=== PATIENT | male | born 1970 | race Caucasian/White ===

== ENCOUNTER 2022-10-23 15:19 | Emergency (ER) | payer MEDICARE, MEDICAID, SELFPAY ==
--- NOTE | ~2022-10-23 | XR_ITS ---
EXAMINATION: XR CHEST CLINICAL INFORMATION: High blood pressure COMPARISON: 08/09/2015 TECHNIQUE: 2 views of the chest were obtained. FINDINGS: Cardiac leads overlie the chest. The lungs are well expanded. There is no focal consolidation, edema, or effusion. No pneumothorax. The cardiomediastinal silhouette is within normal limits. No acute osseous abnormality. XR/XR chest 2V IMPRESSION: Clear lungs.
--- NOTE | 2022-10-23 15:26 | ECG_ITS ---
Test Reason : CHEST PAIN Blood Pressure : / mmHG Vent. Rate : 080 BPM Atrial Rate : 080 BPM P-R Int : 148 ms QRS Dur : 078 ms QT Int : 370 ms P-R-T Axes : 038 -31 116 degrees QTc Int : 426 ms Normal sinus rhythm Left axis deviation T wave abnormality, consider lateral ischemia Abnormal ECG When compared with ECG of 09-AUG-2015 09:47, ST now depressed in Lateral leads Nonspecific T wave abnormality no longer evident in Inferior leads T wave inversion now evident in Lateral leads Referred By: Margaux Venegas Electronically Signed By:CALE MCDUFFIE
[2022-10-23 15:35] VITALS: BP 194/117; PULSE 87; RESP 20; O2SAT 96; BMI 38.7
--- NOTE | 2022-10-23 15:55 | ED.GENADULT ---
HPI - General Adult General Chief complaint: General Medical Stated complaint: High blood pressure sent from office Time Seen by Provider: 10/23/22 15:36 Source: patient Mode of arrival: ambulatory Limitations: no limitations History of Present Illness HPI narrative: 52-year-old male past medical history of hypertension presents to the emergency department today from his primary care office with complaints of hypertension, slight headache, and flu like symptoms since Friday. He states he has recently been taking DayQuil, NyQuil, and cough medicine, each containing dextromethorphan and phenylephrine. He has also not been compliant with his p.o. antihypertensives because he did not want to mix to many medications. He reports upper respiratory symptoms began on Friday a cough and a general feeling of being unwell. Pt denies any recent illness, sick contacts, paresthesias, weakness, fever, chills, nausea, vomiting, diarrhea, constipation, headache, or vision changes. Onset (ago): day(s) Related Data Allergies Allergy/AdvReac Type Severity Reaction Status Date / Time influenza virus vaccine, Allergy Unknown UNKNOWN Unverified 06/15/20 18:57 specific [FLU VACCINE] none Allergy Unknown Uncoded 06/11/19 00:00 Review of Systems Review of Systems: In addition to documented HPI above, the additional ROS was obtained: Constitutional: No Weight loss, No Fever, No Chills ENT/Mouth: No Ear Pain, No Nasal Congestion, No Sinus Pain, No Hoarseness, No sore throat, No Rhinorrhea, No Swallowing Difficulty Cardiovascular: No Chest Pain, No SOB Respiratory: No Cough, No Sputum, No Wheezing Gastrointestinal: No Nausea, No Vomiting, No Diarrhea, No Constipation, No Abdominal pain Genitourinary: No Dysuria, No Urinary Frequency, No Hematuria, No Urinary Incontinence/retention, No Urgency, No Flank Pain Musculoskeletal: No joint pain, No Myalgias, No Joint Swelling Skin: No Skin Lesions, No rash Neuro: No Weakness, No Numbness, No Paresthesias Yes all other systems are reviewed and are negative [facility] Social History Social History Advance Directives: No Advance Directives Information Provided: No Physical Exam ED Vital Signs: Vital Signs - 24 hr 10/23/22 15:35 10/23/22 16:55 Pulse Rate 87 Respiratory Rate 20 Blood Pressure 194/117 H 147/99 H Pulse Oximetry 96 Oxygen Delivery Method Room Air BMI result Body Mass Index 38.7 Medical Decision Making Medical Decision Making MDM Narrative: 52-year-old male past medical history of hypertension presents to the emergency department today from his primary care office with complaints of hypertension, slight headache, and flu like symptoms since Friday. Blood work unremarkable. Serology negative for influenza, RSV, and COVID-19. Chest x-ray negative. LS CTA, MAURO x4 with equal strength, A&O x4. Patient is safe for discharge at this time with plan to in his symptoms with [id number] Tylenol and/or NSAIDs. Patient educated to avoid medications that contain phenylephrine or dextromethorphan. HPI, PE, diagnostics, and plan discussed with patient and family with no unanswered questions at this time. Patient educated to return to the emergency department with new, worsening, or concerning emergent symptoms. Recommended to follow-up with there primary care provider for further treatment and management. *Refer to Course for additional information on consultations, diagnostic interpretation, consultations, emergency department stay, conversations with patient and family, shared decision making with patient, and more information on medical decision making* Lab Data 10/23/22 15:54 10/23/22 15:54 Labs: Lab Results 10/23/22 10/23/22 10/23/22 Range/Units 15:54 15:54 15:54 WBC 13.8 H (4.8-10.8) X10*3/uL RBC 5.07 (4.60-5.80) X10*6/uL Hgb 16.0 (14.0-18.0) g/dl Hct 45.9 (42.0-52.0) % MCV 90.5 (80.0-98.0) fL MCH 31.6 (27.0-33.0) pg MCHC 34.9 (31.0-36.0) g/dl RDW 13.1 (11.0-16.0) % Plt Count 215 (160-400) X10*3/uL MPV 11.2 (9.4-12.4) fL Immature Gran % (Auto) 0.4 (0.0-0.4) % Neut % (Auto) 66.3 (45-73) % Lymph % (Auto) 18.0 L (20-40) % [place] % (Auto) 12.6 H (2-11) % Eos % (Auto) 2.3 (0-4) % Baso % (Auto) 0.4 (0-2) % Lymph # (Auto) 2.5 (1.2-4.9) X10*3/uL [place] # (Auto) 1.7 H (0.1-1.2) X10*3/uL Eos # (Auto) 0.3 (0.0-0.4) X10*3/uL Baso # (Auto) 0.1 (0.0-0.2) X10*3/uL Abs Immat Gran (auto) 0.05 H (0.00-0.03) X10*3/uL Absolute Neuts (auto) 9.1 H (2.0-8.3) x10*3/uL Absolute Nucleated RBC 0.000 (0.0-0.012) X10*3/uL Nucleated RBC % (auto) 0.0 (0.0-0.2) /100WBC Smear Tech's Comments VERIFIED PT 13.2 H (10.0-13.1) SEC INR 1.1 (0.9-1.1) Sodium 142 (135-145) mmol/L Potassium 4.0 (3.3-5.1) mmol/L Chloride 105 (96-108) mmol/L Carbon Dioxide 28 (22-29) mmol/L Anion Gap 13 (12-20) BUN 14 (9-16) mg/dL Creatinine 1.34 (0.5-1.4) mg/dL Estim Creat Clear Calc 72.9 Estimated GFR 56 Random Glucose 67 (60-115) mg/dL Calcium 8.9 (8.4-10.2) mg/dL Magnesium 2.3 (1.6-2.6) mg/dL Total Bilirubin 0.7 (0.0-1.0) mg/dL AST 13 (5-37) U/L ALT 15 (0-40) U/L Alkaline Phosphatase 92 (39-117) U/L Troponin I High Sens (<3.5-35.0) ng/L Total Protein 7.1 (6.5-8.0) g/dL Albumin 4.1 (3.5-5.0) g/dL Influenza Type A (PCR) (Negative) Influenza Type B (PCR) (Negative) RSV RNA Qual (PCR) (Negative) SARS-CoV-2 RNA (RT-PCR) (Negative) 10/23/22 10/23/22 Range/Units 15:54 15:54 WBC (4.8-10.8) X10*3/uL RBC (4.60-5.80) X10*6/uL Hgb (14.0-18.0) g/dl Hct (42.0-52.0) % MCV (80.0-98.0) fL MCH (27.0-33.0) pg MCHC (31.0-36.0) g/dl RDW (11.0-16.0) % Plt Count (160-400) X10*3/uL MPV (9.4-12.4) fL Immature Gran % (Auto) (0.0-0.4) % Neut % (Auto) (45-73) % Lymph % (Auto) (20-40) % [place] % (Auto) (2-11) % Eos % (Auto) (0-4) % Baso % (Auto) (0-2) % Lymph # (Auto) (1.2-4.9) X10*3/uL [place] # (Auto) (0.1-1.2) X10*3/uL Eos # (Auto) (0.0-0.4) X10*3/uL Baso # (Auto) (0.0-0.2) X10*3/uL Abs Immat Gran (auto) (0.00-0.03) X10*3/uL Absolute Neuts (auto) (2.0-8.3) x10*3/uL Absolute Nucleated RBC (0.0-0.012) X10*3/uL Nucleated RBC % (auto) (0.0-0.2) /100WBC Smear Tech's Comments PT (10.0-13.1) SEC INR (0.9-1.1) Sodium (135-145) mmol/L Potassium (3.3-5.1) mmol/L Chloride (96-108) mmol/L Carbon Dioxide (22-29) mmol/L Anion Gap (12-20) BUN (9-16) mg/dL Creatinine (0.5-1.4) mg/dL Estim Creat Clear Calc Estimated GFR Random Glucose (60-115) mg/dL Calcium (8.4-10.2) mg/dL Magnesium (1.6-2.6) mg/dL Total Bilirubin (0.0-1.0) mg/dL AST (5-37) U/L ALT (0-40) U/L Alkaline Phosphatase (39-117) U/L Troponin I High Sens 30.9 (<3.5-35.0) ng/L Total Protein (6.5-8.0) g/dL Albumin (3.5-5.0) g/dL Influenza Type A (PCR) NEGATIVE (Negative) Influenza Type B (PCR) NEGATIVE (Negative) RSV RNA Qual (PCR) NEGATIVE (Negative) SARS-CoV-2 RNA (RT-PCR) NEGATIVE (Negative) Discharge Plan Discharge Clinical Impression: Hypertension Patient Disposition: Home, Self-Care Instructions: Heart Healthy Diet (ED), Hypertension (ED) Additional Instructions: Please take your prescribed antihypertensive when you get home. DO NOT take medications that contain phenylephrine or dextromethorphan as they will increase your blood pressure. Your chest x-ray shows no evidence of pneumonia. Your blood work is unremarkable. Your are negative for influenza, RSV, COVID-19. Please return to the emergency department new, worsening, or concerning emergent symptoms. Please follow-up the primary care provider for further treatment and management. Referrals: [facility] [Primary Care Provider] - Stand Alone Forms: Work/School Release Print Language: Djib[place]ian
[2022-10-23 16:12] LABS: INTERNATIONAL NORM RATIO 1.1 (0.9-1.1); Prothrombin Time 13.2 SEC (10.0-13.1)
[2022-10-23 16:13] LABS: Basophils Absolute Auto 0.1 X10*3/uL (0.0-0.2); Basophils Percent Auto 0.4 % (0-2); Eosinophils Absolute Auto 0.3 X10*3/uL (0.0-0.4); Eosinophils Percent Auto 2.3 % (0-4); Hematocrit 45.9 % (42.0-52.0); Imm Gran Abs Auto 0.05 X10*3/uL (0.00-0.03); Imm Gran Pct Auto 0.4 % (0.0-0.4); Lymphocytes Absolute Auto 2.5 X10*3/uL (1.2-4.9); MANUAL DIFF FLAG SCAN; Mean Corpuscular HGB Conc 34.9 g/dl (31.0-36.0); Mean Corpuscular Hemoglobin 31.6 pg (27.0-33.0); Mean Corpuscular Volume 90.5 fL (80.0-98.0); Mean Platelet Volume 11.2 fL (9.4-12.4); Monocytes Absolute Auto 1.7 X10*3/uL (0.1-1.2); Monocytes Percent Auto 12.6 % (2-11); Neutrophils Absolute Auto 9.1 x10*3/uL (2.0-8.3); Neutrophils Percent Auto 66.3 % (45-73); Platelet Count 215 X10*3/uL (160-400); Red Blood Count 5.07 X10*6/uL (4.60-5.80); Red Cell Distribution Width 13.1 % (11.0-16.0); SCAN SMEAR FLAG 1; White Blood Count 13.8 X10*3/uL (4.8-10.8)
[2022-10-23 16:20] LABS: Alanine Aminotransferase 15 U/L (0-40); Albumin Level 4.1 g/dL (3.5-5.0); Alkaline Phosphatase 92 U/L (39-117); Anion Gap 13 (12-20); Aspartate Amino Transferase 13 U/L (5-37); Bilirubin Total 0.7 mg/dL (0.0-1.0); Blood Urea Nitrogen 14 mg/dL (9-16); Calcium 8.9 mg/dL (8.4-10.2); Carbon Dioxide 28 mmol/L (22-29); Chloride 105 mmol/L (96-108); Creatinine Clr Calc Pharmacy 72.9; Estimated Glomerular Filt Rate 56; Glucose Random 67 mg/dL (60-115); Magnesium 2.3 mg/dL (1.6-2.6); Sodium 142 mmol/L (135-145); Total Protein 7.1 g/dL (6.5-8.0)
[2022-10-23 16:27] LABS: Troponin-I High Sensitivity 30.9 ng/L (<3.5-35.0)
[2022-10-23 16:35] LABS: SLIDE REVIEW VERIFIED
[2022-10-23 16:48] LABS: Influenza A PCR NEGATIVE (Negative); Influenza B PCR NEGATIVE (Negative); Resp Syncy Virus RNA Qual PCR NEGATIVE (Negative); SARS COV2 PCR INHOUSE NEGATIVE (Negative)
[2022-10-23 16:55] VITALS: BP 147/99
== END 2022-10-23 17:38 | disposition home or self-care (01) ==
PROVIDERS: Physician Assistant Medical; Emergency Provider Emergency Medicine
DX: I10 Essential (primary) hypertension (principal); R51.9 Headache, unspecified; Z20.822 Contact with and (suspected) exposure to COVID-19; Z20.828 Contact with and (suspected) exposure to other viral communicable diseases; Z79.899 Other long term (current) drug therapy
CPT/HCPCS: 0241U; 36415; 71046; 80053; 83735; 84484; 85025; 85610; 93005; 99283; 99284

== ENCOUNTER 2023-10-13 14:08 | Outpatient (AMB) | payer MEDICARE, MEDICAID, SELFPAY ==
--- NOTE | 2023-10-13 14:18 | A.OFFVIS_ITS ---
Intake Vital Signs 10/13/23 14:19 Height 5 ft 6 in Weight 208 lb 15.971 oz BMI 33.7 BP 124/78 Blood Pressure Location Lt brachial Position Sitting Pulse 87 Intake Visit Reasons: [employer]/ Thelma [place]/ primary htn Intake Note: NPV Multi Care Technician Required: No Accompanied by: Self / Same As Patient Allergies influenza virus vaccine, specific [FLU VACCINE] Allergy (Unknown, Verified 10/13/23 14:22) UNKNOWN Medication List - Last Reconciled 10/13/23 by Taiwo Will MD amlodipine-benazepril 10-40 mg 1 cap PO DAILY HPI HPI Comments History of Present Illness Details Pablito is here for consultation regarding hypertension. It seems that he has had a long history of hypertension. Currently better on a combination of amlodipine/benazepril. He states that he is generally compliant but sometimes forgets take medicines. Per PCP note, blood pressure runs on the higher side. Today, however, it is completely normal at 124/78 mm Hg. He does not have any history of coronary disease, myocardial infarction or cardiomyopathy or in fact any other cardiac issues. No anginal-type chest pains and he states he can walk up and down stairs without difficulty. [facility] Medical History (Updated 10/13/23 @ 14:33 by Taiwo Will MD) Essential hypertension Surgical History (Updated 10/13/23 @ 14:22 by Arabella Ortiz) No pertinent past surgical history Family History (Updated 10/13/23 @ 14:22 by Arabella Ortiz) Mother No problems noted. Father No problems noted. Social History (Updated 10/13/23 @ 14:23 by Arabella Ortiz) Alcohol intake: never Patient Tobacco Use Status: Never used Tobacco Review of Systems Const Denies chills, Denies daytime sleepiness, Denies fatigue, Denies fever(s), Denies frequent falls, Denies night sweats, Denies snoring, Denies weakness, Denies weight gain and Denies weight loss Eyes Denies loss of vision ENT Denies dizziness and Denies hearing loss Card Denies chest pain with activity, Denies syncope, Denies rapid heart rate, Denies edema, Denies claudication, Denies leg edema, Denies lightheadedness, Denies palpitations, Denies dyspnea, Denies dyspnea on exertion and Denies orthopnea Resp Denies cough, Denies excessive phlegm production, Denies dyspnea, Denies dyspnea on exertion, Denies snoring and Denies wheezing GI Denies abdominal pain, Denies hematochezia, Denies change in bowel habits, Denies change in stool character, Denies heartburn, Denies nausea and Denies vomiting Denies hematuria, Denies dysuria and Denies urinary frequency Musc Denies arthralgias, Denies muscle weakness, Denies numbness and Denies tingling Skin/Breast Denies nail changes and Denies rash Neuro Denies Abnormal speech present, Denies dizziness, Denies syncope, Denies frequent falls, Denies loss of vision, Denies memory loss, Denies numbness, Denies tingling and Denies weakness Psych Denies depression and Denies memory loss Endo Denies fatigue and Denies palpitations Aller/Immun Denies wheezing Physical Exam Vital Signs: Last Vital Signs Pulse 87 10/13/23 14:19 BP 124/78 10/13/23 14:19 BMI result Body Mass Index 33.7 Const General: comfortable and no acute distress Orientation/consciousness: patient oriented x3 HEENT Other: Unremarkable Head: Yes normal to inspection Neck Neck: Yes normal visual inspection Chest Chest palpation & inspection: normal inspection of the chest Resp Auscultation: clear to auscultation bilaterally Cardio Palpation: normal PMI Heart sounds: S1 normal heart sound present, S2 normal heart sound present, no gallops, no murmurs and no rubs GI Palpation (GI): Soft to palpation Back/Spine/Pelvis Other: unremarkable Skin General skin exam: no rashes or lesions noted Neuro General: patient oriented x3 Speech: No Abnormal speech present Extrem General: Yes normal to inspection Psych Mental Status: mental status grossly normal Assessment & Plan Assessment & Plan (1) Essential hypertension: Code(s): I10 - Essential (primary) hypertension Plan Recent EKG shows sinus rhythm at 70/Min; nonspecific ST-T changes lateral leads; normal [place] and corrected QT. Can get echocardiogram for degree of left ventricular hypertrophy/diastolic dysf unction and for anything structural. In future, possibly consider adding a diuretic to optimize blood pressure management. Encouraged compliance with meds. Lifestyle modifications/low-salt diet/adequate physical activity. Orders: Orders CA echo transthoracic complete Today I10 - Essential (primary) hypertension Coding Level of Care Code New Pt Level 3 (29483) Diagnoses Essential hypertension I10
[2023-10-13 14:19] VITALS: BP 124/78; PULSE 87; BMI 33.7
== END 2023-10-13 14:37 | disposition home or self-care (01) ==
PROVIDERS: PCP Registered Nurse; Visit Provider Internal Medicine
DX: I10 Essential (primary) hypertension (principal)
CPT/HCPCS: 99213

== ENCOUNTER → 2023-10-13 14:08 | Outpatient (BNVA) | payer MEDICARE, MEDICAID, SELFPAY | PROVIDERS: PCP Registered Nurse; Visit Provider Internal Medicine | DX: I10 Essential (primary) hypertension (principal) | CPT/HCPCS: 99212 ==

== ENCOUNTER → 2023-10-28 13:00 | Outpatient (REF) | payer MEDICARE, MEDICAID, SELFPAY ==
--- NOTE | 2023-10-28 13:02 | CA_ITS ---
Transthoracic Echocardiogram Patient (Last, First, Middle): Pablito Agee, Gender: Male Date of : 1970 Age: 53 Procedure Date: 10/28/2023 Procedure Type: Transthoracic Echocardiogram Location: OP Height: 167.64 cm Weight: 86.18 kg BSA: 1.96 m2 Heart Rate: bpm BP: 110 / 60 mmHg Trim And Burr Operator: Referring MD: Taiwo Will MD Machine Tracer: Isidoro Lemons MD Symptoms: I10 - Essential (primary) hypertension Study Quality: Adequate ECG Rhythm: Sinus Conclusions: - 1. Normal LV ejection fraction of 55-60% with mild LVH with impaired relaxation filling pattern 2. Normal cardiac valvular Doppler 3. Normal RV systolic pressure 4. No pericardial effusion Findings Left Ventricle Normal left ventricular size and systolic function. There is mildly increased left ventricular wall thickness. The visually estimated ejection fraction is between 55-60%. Spectral Doppler is indicative of an impaired relaxation filling pattern. E/E prime ratio is between 8 and 15 consistent with indeterminate filling pressures. Peak GLS is -16.4%, which is mildly reduced. Right Ventricle Normal right ventricular cavity size and systolic function. Atria The left atrium is likely dilated. Interatrial shunt cannot be excluded. The right atrium is normal in size. Aortic Valve Normal aortic valve structure and function. There is no aortic valve stenosis. There is no aortic valve regurgitation. Mitral Valve Normal mitral valve structure and function. There is trace mitral valve regurgitation. There is no mitral valve stenosis. Pulmonic Valve The pulmonic valve is likely normal. Tricuspid Valve Normal tricuspid valve structure. There is trace tricuspid valve regurgitation. The right ventricular systolic pressure is normal. The right ventricular systolic pressure is 23 mmHg. Normal right atrial pressure. There is no evidence of pulmonary hypertension. Great Vessels All visible segments of the aorta are normal in size. The pulmonary artery was not well visualized. Venous The inferior vena cava is normal in size and collapses greater than 50% with inspiration. Pericardium/Pleural There is no evidence of pericardial effusion. Prior Study Comparison No prior study available for comparison. delay in reporting due to technical issues Measurements 2D Linear Measurements IVSd: 1.36 0.6-0.9/0.6-1.0 cm LVIDd: 5.22 3.9-5.3/4.2-5.9 cm LVIDd Index: 2.66 2.4-3.2/2.2-3.1 cm/m2 LVIDs: 2.98 2.0-3.6 cm LVPWd: 1.33 0.7-1.1 cm Ao Root: 3.40 2.1-3.5 cm LA Diam: 4.20 2.7-3.8/3.0-4.0 cm LAIDs Index: 2.14 1.5-2.3 cm/m2 LV Mass: 366.78 67-162/88-224 g LV Mass Index: 187.13 43-95/49-115 g/m2 LVOT Diam: 2.10 3.0+(-)1.3 cm 2D Systolic Function EF 4C: 50.70 >55% EF 2C: 63.40 >55% EF BiP: 57.80 >55% Mitral Valve MV Pk E: 0.65 MV PK A: 0.80 MV Decel Time: 123.00 E/A: 0.80 E'Lateral: 5.77 E'Medial: 5.22 E/E' Med: 12.40 E/E' Lat: 11.20 PHT: 36.00 MVA PHT: 6.11 Decel Howard: 5.25 Aortic Valve AoV Pk Valentin: 1.35 AoV Mn Valentin: 0.89 AoV VTI: 0.31 AoV Pk Grad: 7.00 Aov Mn Grad: 4.00 WILLIAM Cont.VTI: 2.30 LVOT LVOT Pk Valentin: 0.92 LVOT Mn Valentin: 0.63 LVOT VTI: 0.20 LVOT Pk Grad: 3.00 LVOT Mn Grad: 2.00 LVOT Diam: 2.10 LVOT Area: 3.46 Diastolic Function MV Pk E: 0.65 MV Pk A: 0.80 E/A: 0.80 E'Medial: 5.22 E/E' Med: 12.40 E' Laterial: 5.77 E/E' Lat: 11.20 Right Ventricle TAPSE (mm): 24.00 Tricuspid Valve TR Pk Valentin: 2.25 TR Pk Grad: 20.00 RA Press: 3.00 RVSP: 23.00 Great Vessels Aorta Ao Root-2D: 3.40 2.0-3.7 cm Ao Asc: 3.30 2.1-3.4 cm Pulmonary Valve PV Pk Valentin: 1.27 Peak PV Grad: 6.00 Updated in Other Vendor System with Status of Final Isidoro Lemons MD electronically signed on 10/30/2023 2:03:05 PM with status of Final
== END ==
LOC: HO.CARD 13:00
PROVIDERS: PCP Registered Nurse; Visit Provider Internal Medicine
DX: I10 Essential (primary) hypertension (principal)
CPT/HCPCS: 93306; 93356

== ENCOUNTER → 2023-10-28 13:02 | Outpatient (BNV) | payer MEDICARE, MEDICAID, SELFPAY | PROVIDERS: PCP Registered Nurse; Visit Provider Internal Medicine Cardiovascular Disease | DX: I51.7 Cardiomegaly (principal) | CPT/HCPCS: 93306 ==

== ENCOUNTER 2024-01-16 15:00 | Outpatient (AMB) | payer MEDICARE, MEDICAID, SELFPAY ==
[2024-01-16 15:03] VITALS: BP 150/80; PULSE 86; O2SAT 98; BMI 33.6
--- NOTE | 2024-01-16 15:03 | A.OFFVIS_ITS ---
Vital Signs 01/16/24 15:03 01/16/24 15:41 Height 5 ft 6 in Weight 208 lb BMI 33.6 BP 150/80 H 134/86 Blood Pressure Location Lt brachial Rt brachial Position Sitting Sitting Pulse 86 Pulse Source Monitor Pulse Oximetry (%) 98 Oxygen Delivery Method Room Air Intake Visit Reasons: r/s 01/13/24 3 mos followup HS Intake Note: 3 month follow pt feels good Material Carrier Required: Yes Material Carrier Name: [id number] Allergies influenza virus vaccine, specific [FLU VACCINE] Allergy (Unknown, Verified 10/13/23 14:22) UNKNOWN Medication List - Last Reconciled 01/16/24 by Silvia Krueger NP amlodipine-benazepril 10-40 mg 1 cap PO DAILY HPI Comments Details: 53-year-old male presents today for a follow-up visit. He reports he has been doing well. Denies any chest pain, shortness of breath, headache, or palpitations. He reports he uses very little salt. He states his blood pressures at ,e have been in the 140s. Upon arrival elevated reduced some when rechecked by me. [facility] Medical History Essential hypertension Surgical History No pertinent past surgical history Family History Mother No problems noted. Father No problems noted. Social History Alcohol intake: never Patient Tobacco Use Status: Never used Tobacco Review of Systems Const Denies weakness ENT Denies dizziness Card Denies chest pain, Denies chest pain with activity, Denies syncope, Denies rapid heart rate, Denies pedal edema, Denies edema, Denies leg edema, Denies lightheadedness, Denies palpitations, Denies dyspnea, Denies dyspnea on exertion and Denies orthopnea Resp Denies cough, Denies dyspnea and Denies dyspnea on exertion GI Denies hematochezia and Denies change in stool character Musc Denies abnormal gait, Denies muscle cramps, Denies muscle weakness, Denies numbness, Denies radiating pain into limb and Denies tingling Neuro Denies abnormal gait, Denies dizziness, Denies syncope, Denies numbness, Denies tingling and Denies weakness Endo Denies palpitations Physical Exam Vital Signs: Last Vital Signs Pulse 86 01/16/24 15:03 BP 134/86 01/16/24 15:41 Pulse Ox 98 01/16/24 15:03 Oxygen Delivery Method Room Air 01/16/24 15:03 BMI result Body Mass Index 33.6 Office Procedures EKG Details: EKG today. Normal Sinus Rhythm. Rate 86 bpm. Nonspecific T wave abnormality. QRS 78ms. QTc 433ms. [id number], Complete Results Reviewed Results Reviewed: Echo Conclusions: - 1. Normal LV ejection fraction of 55-60% with mild LVH with impaired relaxation filling pattern 2. Normal cardiac valvular Doppler 3. Normal RV systolic pressure 4. No pericardial effusion Assessment & Plan Assessment & Plan (1) Essential hypertension: Code(s): I10 - Essential (primary) hypertension Category: Medical Plan Blood pressure elevated on arrival. Reduced by end of visit. Echocardiogram EF iof 55-60% with mild LVH. Will add HCT and have him come back in one week to check blood pressure in office. Medications: New hydrochlorothiazide 25 mg PO DAILY 30 days 30 tabs 1RF
[2024-01-16 15:41] VITALS: BP 134/86
== END 2024-01-16 15:52 | disposition home or self-care (01) ==
PROVIDERS: PCP Registered Nurse; Visit Provider Nurse Practitioner
DX: I10 Essential (primary) hypertension (principal)
CPT/HCPCS: 93010; 99213

== ENCOUNTER → 2024-01-16 15:00 | Outpatient (BNVA) | payer MEDICARE, MEDICAID, SELFPAY | PROVIDERS: PCP Registered Nurse; Visit Provider Nurse Practitioner | DX: I10 Essential (primary) hypertension (principal) | CPT/HCPCS: 93005; 99212 ==

== ENCOUNTER → 2024-01-23 10:15 | Outpatient (BNVA) | payer MEDICARE, MEDICAID, SELFPAY | PROVIDERS: PCP Registered Nurse; Visit Provider Nurse Practitioner | DX: Z01.89 Encounter for other specified special examinations (principal) ==

== ENCOUNTER 2025-03-09 14:26 | Outpatient (AMB) | payer MEDICARE, MEDICAID, SELFPAY ==
[2025-03-09 14:29] VITALS: BP 140/78; PULSE 94; BMI 33.6
--- NOTE | 2025-03-09 14:29 | A.OFFVIS_ITS ---
Vital Signs 03/09/25 14:29 Height 5 ft 6 in Weight 208 lb BMI 33.6 BP 140/78 H Blood Pressure Location Lt brachial Position Sitting Pulse 94 Pulse Source Monitor Intake Visit Reasons: Essential hypertension Allergies influenza virus vaccine, specific [FLU VACCINE] Allergy (Unknown, Verified 10/13/23 14:22) UNKNOWN Medication List - Last Reconciled 03/09/25 by Taiwo Will MD amlodipine-benazepril 10-40 mg 1 cap PO DAILY hydrochlorothiazide 25 mg PO DAILY 30 days HPI Comments Details: Pablito returns for follow-up. In the past, he was seen regarding hypertension. It had been quite high. As much as 194/117mm Hg as recorded in 2022 but much better now. Patient himself does not have any clear-cut cardiac complaints. No angina or shortness of breath or in fact anything of cardiac nature. There is no history of any coronary disease or myocardial infarction or cardiomyopathy. He states that he is quite active with absolutely no limitations. Current medications listed are amlodipine/benazepril and hydrochlorothiazide. He states he takes some regularly. Today's blood pressure is borderline high. [facility] Medical History Essential hypertension Surgical History No pertinent past surgical history Family History Mother No problems noted. Father No problems noted. Social History Alcohol intake: never Patient Tobacco Use Status: Never used Tobacco Review of Systems Const Denies weakness ENT Denies dizziness Card Denies chest pain, Denies chest pain with activity, Denies syncope, Denies rapid heart rate, Denies pedal edema, Denies edema, Denies leg edema, Denies lightheadedness, Denies palpitations, Denies dyspnea, Denies dyspnea on exertion and Denies orthopnea Resp Denies cough, Denies dyspnea and Denies dyspnea on exertion GI Denies hematochezia and Denies change in stool character Musc Denies abnormal gait, Denies muscle cramps, Denies muscle weakness, Denies numbness, Denies radiating pain into limb and Denies tingling Neuro Denies abnormal gait, Denies dizziness, Denies syncope, Denies numbness, Denies tingling and Denies weakness Endo Denies palpitations Physical Exam Vital Signs: Last Vital Signs Pulse 94 03/09/25 14:29 BP 140/78 H 03/09/25 14:29 BMI result Body Mass Index 33.6 Const General: comfortable and no acute distress Orientation/consciousness: patient oriented x3 HEENT Other: Unremarkable Head: Yes normal to inspection Neck Neck: Yes normal visual inspection Chest Chest palpation & inspection: normal inspection of the chest Resp Auscultation: clear to auscultation bilaterally Cardio Palpation: normal PMI Heart sounds: S1 normal heart sound present, S2 normal heart sound present, no gallops, no murmurs and no rubs GI Palpation (GI): Soft to palpation Back/Spine/Pelvis Other: unremarkable Skin General skin exam: no rashes or lesions noted Neuro General: patient oriented x3 Extrem General: Yes normal to inspection Psych Mental Status: mental status grossly normal Office Procedures EKG Details: EKG with underlying sinus rhythm at 94/Min; nonspecific ST-T changes; [place] [id number], Complete Assessment & Plan Assessment & Plan (1) Essential hypertension: Code(s): I10 - Essential (primary) hypertension Category: Medical Plan Echocardiogram 2023-LVEF is 55-60%. Mild left ventricular hypertrophy with mild diastolic dysfunction. Otherwise unremarkable. Hypertension is reasonably controlled on the current regimen. Today's blood pressure is borderline. If still necessary, we can consider other agents like spironolactone or beta- blockers. However, patient would not want anything more and he states he wishes to leave things the way they are. Hence no further changes at this time. Per future, may follow up with PCP and contact us as needed. He agrees with that. Discussion Notes We discussed the management of the patient's hypertension and its importance. The potential for adding a third antihypertensive medication was examined. Risks and benefits of his current medications Amlodipine/Benazepril and Hydrochlorothiazide were discussed, emphasizing continuous monitoring and routine follow-up with his primary care provider. No further cardiac assessment or intervention is needed presently, given the absence of additional symptoms such as chest pain. I advised the patient on reducing dietary salt intake and continuing self-monitoring of blood pressure. Consent for this management plan, along with the discussed possibilities of changes to his medication regimen, was obtained. Patient was informed and verbally consented to the use of an ambient scribe for clinic note documentation during this visit. Patient Instructions: - Continue taking your current antihypertensive medications daily. - Monitor your blood pressure at home regularly. - Reduce salt intake in your diet. - Follow up with your primary care doctor routinely. - Call us if you experience any chest pain or other new symptoms. - No immediate changes to your treatment regimen unless advised by a healthcare professional. Coding Level of Care Code Est Pt Level 3 (67074) Diagnoses Essential hypertension I10 CPT Codes EKG - CPT: 97985-[id number], Complete ([id number])
--- OUTSIDE RECORDS SUMMARY | 2025-03-09 16:34 | XMS_ITS | Clinical Summary ---
Author Organization [employer] Address [address] [facility] [address] [place] [address] Care Team Providers Care Adjunct Faculty For Medical Terminology Name Role Phone Thelma Strickland [facility] Primary Care Provider [phone] Allergies No known active allergies Medications valACYclovir (Valtrex) 500 MG tablet TAKE 1 TABLET BY MOUTH TWICE DAILY FOR 3 DAYS FOR OUTBREAK 6 tablet 1 4 Active benzoyl peroxide (Benzoyl Peroxide Wash) 5 % external wash USE TO WASH AFFECTED AREA(S) 3 TIMES A WEEK 237 mL 4 Active Ventolin HFA 108 (90 Base) MCG/ACT inhaler INHALE 2 PUFFS BY MOUTH EVERY 4 TO 6 HOURS NEEDED 18 g 4 Active guaiFENesin (Robitussin) 100 MG/5ML syrup TAKE 10 ML BY MOUTH EVERY 4 HOURS NEEDED 120 mL 4 Active Fluocinolone Acetonide Scalp (Blades-Smoothe/FS Scalp) 0.01 % oilIndications:Le mitch of skin of scalp Massage into damp scalp daily. Cover hair and leave on for at least 4 hours 118 mL 4 Active amLODIPine-benaze pril (Lotrel) 10-40 MG capsuleIndication s:Primary hypertension TAKE 1 CAPSULE BY MOUTH EVERY DAY IN THE MORNING 30 capsule 11 5 Active Active Problems Problem Noted Date Diagnosed Date Mixed hyperlipidemia 06/23/2023 Overview (06/23/2023): ?? ASCVD 6.7% 02/2023 Assessment & Plan (06/23/2023 11:34 AM EDT): ?? Discussed lab results with patient ?? Recommend initiating moderate intensity statin per ACC/AHA guidelines. Pt declines. Lifestyle recommendations reviewed ?? Will continue to monitor ?? Risks of untreated hyperlipidemia reviewed. Healthcare maintenance 03/07/2023 Overview (06/23/2023): C-Scope: Will reorder cologuard tday PSA: Previously declines. Discuss reordering at follow up Vision Exam: Discuss at follow up Dental Care: Followed by [facility] Assessment & Plan (03/20/2023 2:50 PM EDT): ?? Accepts cologuard today ?? Encouraged shingles vaccine ?? Declines covid booster Genital herpes simplex 11/21/2015 Hypertensive disorder 08/01/2015 Overview (06/23/2023): ?? amlodipine-benzapril 10-40mg daily ? ? Abnormal EKG in walk in center with non specific T wave changes-referred to cardiology 10/28/2022 Maintenance: BMP: 02/2023 Lipid Panel: 02/2023 ASCVD Risk: 6.7%, declines statin start EKG: Non specific t wave abnormalities - Aerobic exercise to reduce BP. Initial goal of 30 min walk 3-5x/week. Increase as tolerated. - low-sodium diet (goal: <2g/day) and heart healthy diet such as DASH to reduce BP and prevent ASCVD. - Home BP monitoring 1-2 x day with goal of <140/90. - Seek immediate medical attention for chest pain, palpitations, SOB, syncope, or sudden changes in mental status. - Do not change or discontinue current prescriptions without first consulting health care provider Assessment & Plan (06/23/2023 11:29 AM EDT): ?? BP above goal at last 3 office visits. Patient not monitoring consistently at home. I recommend adjusting current BP medications +/- addition of chlorthalidone. Pt declines due to high pill burden. Pt concerned about heart disease given positive family hx, however feels that more medication will cause heart disease. I reviewed with patient risks of untreated HTN including heart attack and stroke and that appropriate BP control will help to prevent worsening HD. Patient verbalizes understanding. States he will consider adjusting medication if he is seen by cardiology and cardiology also recommends adjutsing meds. ?? Will resubmit cardiology referral ?? Repeat EKG in office today-unchanged from prior reading. Non-specific T wave changes. Sinus rhythm. No acute findings. . Assessment & Plan (03/20/2023 2:49 PM EDT): ?? Continue current regimen ?? Complete previously ordered labs ?? Follow up as scheduled with [facility] Assessment & Plan (10/25/2022 10:12 AM EST): -Given BP log to record daily for the next 2 weeks, bring to follow up appt -Reviewed lifestyle intervention such as low salt diet and daily exercise with goal 150mins weekly -ED precautions reviewed Follow up in 2 weeks, sooner as needed. Pt in agreement with plan. Asthma 08/01/2015 Overview (03/20/2023): ?? Well controlled with albuterol PRN Illiteracy 08/01/2015 Encounters Date Type Department Care Team Description 12/28/2024 Refill [facility] [address] [place] [address] [facility] Primary hypertension from Last 3 Months Immunizations Immunization Administration Dates Next Due Influenza injectable quadrivalent preservative f ree 06/13/2023 Influenza, seasonal, injectable, preservative fr ee 11/04/2022 Tdap 06/05/2017 Family History Medical History Relation Name Comments Diabetes type II Father Liver cancer Mother's Sister Relation Name Status Comments Father Mother's Sister Social History Tobacco Use Types Packs/Day Years Used Date Smoking Tobacco: Never Smokeless Tobacco: Never Alcohol Use Standard Drinks/Week Comments Never 0 (1 standard drink = 0.6 oz pur e alcohol) Depression Answer Date Recorded Patient Health Questionnaire-9 Score 0 05/12/2024 Patient Health Questionnaire-9 Score 0 05/12/2024 Last PHQ-9: Questionnaire Data Not on file 0 05/12/2024 Housing Stability Answer Date Recorded What is your housing situation today? I have rosalio valenzuela 05/12/[address] you li ve. Do you have problems with any of the following? None of the above 05/12/2024 Food Insecurity Answer Date Recorded Within the past 12 months, y ou worried that your food would run out before you got money to buy more: Never True 05/12/2024 Within the past 12 months,th e food you bought just didn't last and you didn't have enough money to get more: Never True Transportation Answer Date Recorded In the past 12 months, has l ack of transportation kept you from medical appts, meetings, work or from getting things needed for daily living? No 05/12/2024 Utilities Answer Date Recorded In the past 12 months, has t he electric, gas, oil or water company threatened to shut off services in your home? No 05/12/2024 Depression Answer Date Recorded Patient Health Questionnaire-2 Score 0 05/12/2024 Internet Access Answer Date Recorded Internet Access Q1 Yes 05/31/2024 Internet Access Q2 Not on file 05/31/2024 Sex and Gender Information Value Date Recorded Sex Assigned at Male 07/29/2022 10:28 AM EDT Legal Sex Male 10:28 AM EDT Gender Identity Male 07/29/2022 10:28 AM EDT Sexual Orientation Don't know 07/29/2022 10 :28 AM EDT Last Filed Vital Signs Vital Sign Reading Time Taken Comments Blood Pressure 120/90 05/12/2024 4:03 PM EDT Pulse 86 05/12/2024 3:17 PM EDT Temperature 36.4 ??C (97.5 ??F) 05/12/2024 3:17 PM ED T Respiratory Rate 20 05/12/2024 3:17 PM EDT Oxygen Saturation 98% 05/12/2024 3:17 PM EDT Inhaled Oxygen Concentration - - Weight 95.8 kg (211 lb 3.2 oz) 05/12/2024 3:17 P M EDT Height 167.6 cm (5' 6 ) 05/12/2024 3:17 PM EDT Body Mass Index 34.09 05/12/2024 3:17 PM EDT Plan of Treatment Health Maintenance Due Date Last Done Comments CT Colonography 1968 Colonoscopy 1968 FIT 1968 FOBT 1968 Sigmoidoscopy 1968 Disability Screening 1968 Alcohol/Substance Use Screening 1980 Hepatitis B Vaccines (1 of 3 - 19+ 3-dose series) 1987 Pneumococcal Vaccine: 50+ Years (1 of 2 - PCV) 1987 Zoster Vaccines (1 of 2) 2018 COVID-19 Vaccine (1 - 2023-2 5 season) 2024 Depression Screening 05/12/2025 05/12/2024, 05/12/2024 SDOH Screening 05/12/2025 05/12/2024 Tobacco Screening 05/12/2025 05/12/2024 Influenza Vaccine (Season Ended) 2025 06/13/2023, 11/04/2022 Colorectal Cancer Screening 05/19/2027 FIT DNA/Cologuard 05/19/2027 05/19/2024 DTaP/Tdap/Td Vaccines (2 - T d or Tdap) 06/05/2027 06/05/2017 Lipid Panel 03/07/2028 03/07/2023 RSV Patients and Patients Aged 60 years or older (1 - 1-dose 75+ series) 2043 HIV Screening Completed 03/07/2023 Hepatitis C Screening Completed 03/07/2023 HIB Vaccines Aged Out No longer eligi ble based on patient's age to complete this topic HPV Vaccines Aged Out No longer eligi ble based on patient's age to complete this topic Hepatitis A Vaccines Aged Out No long er eligible based on patient's age to complete this topic IPV Vaccines Aged Out No longer eligi ble based on patient's age to complete this topic Meningococcal B Vaccine Aged Out No l onger eligible based on patient's age to complete this topic Meningococcal Vaccine Aged Out No julissa carlitos eligible based on patient's age to complete this topic RSV under 20 months Aged Out No longe r eligible based on patient's age to complete this topic Rotavirus Vaccines Aged Out No longer eligible based on patient's age to complete this topic Procedures Procedure Name Priority Date/Time Associated Diagnosis Comments LAB COLOGUARD?? COLON CANCER SCREEN Routine 05/19/2024 10:42 PM EDT Encounter for screening for malignant neoplasm of colon HEPATITIS C AB W/REFL TO HCV RNA, QN, PCR Routine 03/07/2023 4:21 PM EDT Healthcare maintenance HIV 1/2 ANTIGEN/ANTIBODY, FOURTH GENERATION W/RFL Routine 03/07/2023 4:21 PM EDT Healthcare maintenance LIPID PANEL, STANDARD Routine 03/07/2023 4:21 PM EDT Primary hypertension from Last 3 Months or Most Recently Relevant to Health Maintenance Results * Cologuard?? colon cancer screening (05/19/2024 10:42 PM EDT) Cologuard Result Negative Negative 05/22/20 10:06 AM EDT [employer] (CLIA #:[id number]) Comment: NEGATIVE TEST RESULT. A negative Cologuard result indicates a low likelihood that a colorectal cancer (CRC) or advanced adenoma (adenomatous polyps with more advanced pre-malignant features) ??is present. The chance that a person with a negative Cologuard test has a colorectal cancer is less than 1 in 1500 (negative predictive value >99.9%) or has an ??advanced adenoma is less than ??5.3% (negative predictive value 94.7%). These data are based on a prospective cross-sectional study of 10,000 individuals at average risk for colorectal cancer who were screened with both Cologuard and colonoscopy. (Yadira Alberto et al, N Engl J Med 2014;370(14):1286- 1297) The normal value (reference range) for this assay is negative. COLOGUARD RE-SCREENING RECOMMENDATION: Periodic colorectal cancer screening is an important part of preventive healthcare for asymptomatic individuals at average risk for colorectal cancer. ??Following a negative Cologuard result, the [place] Cancer Society and U.S. Multi-Society Task Force screening guidelines recommend a Cologuard re-screening interval of 3 years. References: [place] Cancer Society Guideline for Colorectal Cancer Screening: https://www.cancer.org/cancer/kdqff-jtkdvy-icfycl/gioaxddri-uyfpzjyvt-mjowrpi/ac s-rec ommendations.html.; Hugo HELMS, Alex AMADOR, Zita CHEN, Colorectal Cancer Screening: Recommendations for Physicians and Patients from the U.S. Multi-Society Task Force on Colorectal Cancer Screening , Am J Gastroenterology 2017; 112:4301-3446. TEST DESCRIPTION: Composite algorithmic analysis of stool DNA-biomarkers with hemoglobin immunoassay. ?? Quantitative values of individual biomarkers are not reportable and are not associated with individual biomarker result reference ranges. Cologuard is intended for colorectal cancer screening of adults of either sex, 45 years or older, who are at average-risk for colorectal cancer (CRC). Cologuard has been approved for use by the U.S. FDA. The performance of Cologuard was established in a cross sectional study of average-risk adults aged 50-84. Cologuard performance in patients ages 45 to 49 years was estimated by sub-group analysis of near-age groups. Colonoscopies performed for a positive result may find as the most clinically significant lesion: colorectal cancer [4.0%], advanced adenoma (including sessile serrated polyps greater than or equal to 1cm diameter) [20%] or non- advanced adenoma [31%]; or no colorectal neoplasia [45%]. These estimates are derived from a prospective cross-sectional screening study of 10,000 individuals at average risk for colorectal cancer who were screened with both Cologuard and colonoscopy. (Yadira Caldwell al, N Engl J Med 2014;370(14):6145-0136.) Cologuard may produce a false negative or false positive result (no colorectal cancer or precancerous polyp present at colonoscopy follow up). A negative Cologuard test result does not guarantee the absence of CRC or advanced adenoma (pre-cancer). The current Cologuard screening interval is every 3 years. ([place] Cancer Society and U.S. Multi-Society Task Force). Cologuard performance data in a 10,000 patient pivotal study using colonoscopy as the reference method can be accessed at the following location: www.[employer]/results. Additional description of the Cologuard test process, warnings and precautions can be found at www.[employer].com. Stool specimen (specimen) 05/19/2024 10:42 PM EDT 05/20/2024 10:43 AM EDT [facility] LAB MOLECULAR DIAGNOSTICS ORD ERABLES Final Result [employer] (CLIA #:[id number]) [place] [address], * Hepatitis C Antibody with Reflex to HCV, RNA, Quantitative, Real-Time PCR (03/07/2023 4:21 PM EDT) Hepatitis C Antibody NON-REACT HANNAH NON-REACT HANNAH [facility] Index 0.14 <1.00 [facility] Comment: HCV antibody was non-reactive. There is no laboratory evidence of HCV infection. In most cases, no further action is required. However, if recent HCV exposure is suspected, a test for HCV RNA (test code 83434) is suggested. For additional information please refer to http://education.[employer]faq/RFR66q0 (This link is being provided for informational/ educational purposes only.) Blood Venous blood specimen / Unknown 03/07/2023 4:21 PM EDT 03/07/2023 4:22 PM EDT Narrative [facility] - 03/08/2023 8:44 AM EDT FASTING:NO FASTING: NO [facility] LAB BLOOD ORDERABLES Final Re sult [facility] [address], [place] [address] [facility] [address] [place] [address] * HIV-1/2 Antigen and Antibodies, Fourth Generation, with Reflexes (03/07/2023 4:21 PM EDT) HIV Antigen/Antibody, 4th Generation NON-REAC TIVE NON-REAC TIVE [facility] Comment: HIV-1 antigen and HIV-1/HIV-2 antibodies were not detected. There is no laboratory evidence of HIV infection. PLEASE NOTE: This information has been disclosed to you from records whose confidentiality may be protected by state law. ??If your state requires such protection, then the state law prohibits you from making any further disclosure of the information without the specific written consent of the person to whom it pertains, or as otherwise permitted by law. A general authorization for the release of medical or other information is NOT sufficient for this purpose. ?? For additional information please refer to http://[employer]faq/SGP584 (This link is being provided for informational/ educational purposes only.) The performance of this assay has not been clinically validated in patients less than 2 years old. Blood Venous blood specimen / Unknown 03/07/2023 4:21 PM EDT 03/07/2023 4:22 PM EDT Narrative [facility] - 03/08/2023 8:44 AM EDT FASTING:NO FASTING: NO [facility] LAB BLOOD ORDERABLES Final Re sult [facility] [address], [place] [address] [facility] [address] [place] [address] * (ABNORMAL) Lipid Panel, Standard (03/07/2023 4:21 PM EDT) Cholesterol, Total 158 <200 mg/dL [email or web address] HDL Cholesterol 35(L) > OR = 40 mg/dL [email or web address] Triglycerides 116 <150 mg/dL [facility] LDL Cholesterol 102(H) mg/dL (calc) [facility] Comment: Reference range: <100 Desirable range <100 mg/dL for primary prevention; ?? <70 mg/dL for patients with CHD or diabetic patients with > or = 2 CHD risk factors. LDL-C is now calculated using the Sanjiv-Scott calculation, which is a validated novel method providing better accuracy than the Friedewald equation in the estimation of LDL-C. Sanjiv SS et al. SANDRA. 2013;310(19): 2769-9794 (http://education.[employer]/faq/WRM231) Chol/HDLC Ratio 4.5 <5.0 (calc) [email or web address] Non-HDL Cholesterol 123 <130 mg/dL (calc) [email or web address] Comment: For patients with diabetes plus 1 major ASCVD risk factor, treating to a non-HDL-C goal of <100 mg/dL (LDL-C of <70 mg/dL) is considered a therapeutic option. Blood Venous blood specimen / Unknown 03/07/2023 4:21 PM EDT 03/07/2023 4:22 PM EDT Narrative [facility] - 03/08/2023 8:44 AM EDT FASTING:NO FASTING: NO [facility] [employer] LAB BLOOD ORDERABLES Final Re sult [facility] [address], [place] [address] [facility] [address] [place] [address] from Last 3 Months or Most Recently Relevant to Health Maintenance Insurance MEDICARE [facility] Care Teams Adjunct Faculty For Medical Terminology Relationship Specialty Start Date End Date [place] FNP [address] [place] [id number] PCP - General Family Medicine 05/26/22
== END 2025-03-09 15:08 | disposition home or self-care (01) ==
LOC: HO.HCS 14:27
PROVIDERS: PCP Registered Nurse; Visit Provider Internal Medicine
DX: I10 Essential (primary) hypertension (principal)
CPT/HCPCS: 93010; 99213

== ENCOUNTER → 2025-03-09 14:26 | Outpatient (BNVA) | payer MEDICARE, MEDICAID, SELFPAY | PROVIDERS: PCP Registered Nurse; Visit Provider Internal Medicine | DX: I10 Essential (primary) hypertension (principal); R94.31 Abnormal electrocardiogram [ECG] [EKG] | CPT/HCPCS: 93005; 99212 ==